=== PATIENT | male | born 1955 | race Caucasian/White ===

== ENCOUNTER 2018-01-01 06:25 | Day surgery (SDC) | payer BC, OTHER ==
[~2018-01-01 06:25] MED LIST: Midazolam 1 MG/ML 2 ML SDV ONE; Sodium Chloride 0.9% 10 ML Syringe FLUSH PRN; fentaNYL 100 MCG/2 ML SDV ONE
[2018-01-01] MEDS ORDERED: fentaNYL 100 MCG/2 ML SDV IV ONE (06:26)
[2018-01-01] MEDS ORDERED: Midazolam 1 MG/ML 2 ML SDV IV ONE (06:26)
[2018-01-01] MEDS: Dextrose 5%-0.45% NaCl 1,000 ML IV SCH (06:59)
[2018-01-01] MEDS: fentaNYL 100 MCG/2 ML SDV IV ONE ×2 (07:21→07:22)
[2018-01-01] MEDS: Midazolam 1 MG/ML 2 ML SDV IV ONE ×6 (07:22→07:29)
--- NOTE | 2018-01-01 08:15 | OR ---
DATE: 01/01/2018 PROCEDURE PERFORMED: Total colonoscopy, NBI, and cold snare polypectomy. INSTRUMENT USED: CF-H180 AL Olympus video colonoscope. PREMEDICATIONS: Fentanyl 100 mcg intravenous, Versed 4 mg intravenous. Nasal O2 cannula. The procedure was done under pulse oximetry, BP recording, and cardiac cath lab radiology technologist. INDICATION: The patient with previous colonic tubular adenoma. Surveillance colonoscopic examination is done for detection of any polypoid lesions and removal, endoscopic hemostasis therapy if needed. Initial rectal exam showed BPH. Rigid anoscopy showed small internal hemorrhoids without bleeding from them. DESCRIPTION OF PROCEDURE: The colonoscope was passed with ease. Scattered diverticula were noted, more so in the distal left colon. The scope was passed with ease at the ileocecal area. Photographs were taken of the cecum, identified by landmarks of appendiceal orifice and double-bulged ileocecal folds, 5 mm sized benign-appearing polyp was noted in the cecum. NBI views were obtained. Photographs were taken. Cold snare polypectomy was done, and the tissue was retrieved and sent for histopathology. No bleeding was noted from any of the visualized areas at the commencement of the examination. The bowel preparation was found to be adequate. No stricture. No vascular ectasia. No large or isolated ulceration seen. No evidence of diffuse inflammatory bowel disease in the form of friability, contact bleeding, or ulcerations. Probing the proximal sides of folds and flexures, using adequate distention and clearing up the stool material, withdrawal of the scope was made, cecum to rectum time over 6 minutes. No bleeding was noted from any of the visualized areas at the completion of the examination. IMPRESSION: 1. External hemorrhoids. 2. Diverticulosis. 3. Cecal polyp. The patient tolerated the procedure well. [facility] /[id number]
[2018-01-01 10:58] VITALS: BP 133/73
== END 2018-01-01 09:50 | disposition home or self-care (01) ==
LOC: DL.ENDO 06:25
PROVIDERS: ATTEND Internal Medicine Gastroenterology
DX: Z12.11 Encounter for screening for malignant neoplasm of colon (principal); K63.5 Polyp of colon; K64.8 Other hemorrhoids; K64.4 Residual hemorrhoidal skin tags; K57.30 Diverticulosis of large intestine without perforation or abscess without bleeding; I10 Essential (primary) hypertension; N40.0 Benign prostatic hyperplasia without lower urinary tract symptoms; F32.9 Major depressive disorder, single episode, unspecified; E78.5 Hyperlipidemia, unspecified; Z86.010 Personal history of colon polyps; Z80.0 Family history of malignant neoplasm of digestive organs
CPT/HCPCS: J2250; J3010; J7042

== ENCOUNTER 2019-09-07 16:42 | Emergency (ER) | payer OTHER ==
--- NOTE | 2019-09-07 17:13 | EDM.PDOC ---
ED HPI GENERAL MEDICAL PROBLEM - General Chief Complaint: Genitourinary Problem Stated Complaint: difficulty urinating Time Seen by Provider: 09/07/19 17:10 Source of Information: Reports: Patient, Old Records, RN, RN Notes Reviewed History Limitations: Reports: No Limitations - History of Present Illness INITIAL COMMENTS - FREE TEXT/NARRATIVE: Pt presents to ER from home by POV with c/o difficulty passing his urine. The happened once a few years ago and he had to have a catheter. Pt was seen in clinic yesterday and treated for a UTI with Macrobid. Denies hematuria, flank pain, N/V. Onset: Gradual Duration: Constant, Getting Worse Location: Reports: Other (Urinary) Quality: Reports: Pressure Severity: Moderate Improves with: Reports: None Worsens with: Reports: None Associated Symptoms: Reports: No Other Symptoms - Related Data Allergies Allergy/AdvReac Type Severity Reaction Status Date / Time lactose Allergy Diarrhea Verified 09/07/19 17:10 Home Meds: Home Meds Sertraline [Zoloft] 150 mg PO DAILY 12/31/17 [History] atorvaSTATin [Lipitor] 20 mg PO DAILY 12/31/17 [History] hydroCHLOROthiazide [Hydrochlorothiazide] 25 mg PO DAILY 12/31/17 [History] Tamsulosin HCl 0.4 mg PO DAILY 09/07/19 [History] nitrofurantoin macrocrystaL [Nitrofurantoin] 100 mg PO BID 09/07/19 [History] Past Medical History HEENT History: Reports: Impaired Vision Other HEENT History: CORRECTIVE LENS Cardiovascular History: Reports: High Cholesterol, Hypertension Respiratory History: Reports: None Gastrointestinal History: Reports: Colon Polyp, Diverticulosis, Hemorrhoids Genitourinary History: Reports: Prostate Disorder, Retention, Urinary Musculoskeletal History: Reports: None Neurological History: Reports: Migraines Psychiatric History: Reports: Depression Endocrine/Metabolic History: Reports: None Hematologic History: Reports: None Immunologic History: Reports: None Oncologic (Cancer) History: Reports: None Dermatologic History: Reports: None - Infectious Disease History Infectious Disease History: Reports: Chicken Pox, Influenza, Measles - Past Surgical History Head Surgeries/Procedures: Reports: None HEENT Surgical History: Reports: None Cardiovascular Surgical History: Reports: None Respiratory Surgical History: Reports: None GI Surgical History: Reports: Colonoscopy, Hernia, Inguinal, Polypectomy Other GI Surgeries/Procedures: Repair of right inguinal hernia Male Surgical History: Reports: None, Vasectomy Endocrine Surgical History: Reports: None Neurological Surgical History: Reports: None Other Neurological Surgeries/Procedures: last migraine 12/29/17 Musculoskeletal Surgical History: Reports: None Oncologic Surgical History: Reports: None Dermatological Surgical History: Reports: None Social & Family History - Family History Family Medical History: Noncontributory - Caffeine Use Caffeine Use: Reports: Coffee, Soda, Tea Other Caffeine Use: COFFEE AVERAGES 2 CUPS DAILY. SODA POP AVERAGES 1 DAILY 4- 5 WEEKLY ED ROS GENERAL - Review of Systems Review Of Systems: Comprehensive ROS is negative, except as noted in HPI. ED EXAM, RENAL/ - Physical Exam Exam: See Below Exam Limited By: No Limitations General Appearance: Alert, WD/WN, No Apparent Distress Throat/Mouth: Normal Voice, No Airway Compromise Head: Atraumatic, Normocephalic Respiratory/Chest: No Respiratory Distress Cardiovascular: Regular Rate, Rhythm GI/Abdominal: Normal Bowel Sounds, Soft, No Abnormal Bruit, Pelvis Stable, Tender (Suprapubic tenderness with mass consitent with enlarged urinary bladder to palpation.). No: Guarding, Rigid Rectal (Males) Exam: Deferred Back Exam: Normal Inspection. No: CVA Tenderness (L), CVA Tenderness (R) Extremities: Normal Inspection Neurological: Alert, Oriented, Normal Gait, No Motor/Sensory Deficits Psychiatric: Normal Mood Skin Exam: Warm, Dry Course - Vital Signs Last Recorded V/S: Last Vital Signs Temp 98.5 F 09/07/19 17:18 Pulse 94 09/07/19 17:18 Resp 16 09/07/19 17:18 BP 154/78 H 09/07/19 17:18 Pulse Ox 98 09/07/19 17:18 - Orders/Labs/Meds Orders: Active Orders 24 hr Category Date Time Status Insert Ignacio Catheter [Insert Urinary Catheter] [OM.PC] Care 09/07/19 17:38 Ordered Stat Urinary Catheter Assessment [RC] ASDIRECTED Care 09/07/19 17:39 Active CULTURE URINE [RM] Stat Lab 09/07/19 17:24 Received Labs: Laboratory Tests 09/07/19 Range/Units 17:24 Urine Color Yellow (YELLOW) Urine Appearance Slightly cloudy (CLEAR) Urine pH 7.0 (5.0-9.0) Ur Specific [place] 1.015 (1.005-1.030) Urine Protein Negative (NEGATIVE) Urine Glucose (UA) Negative (NEGATIVE) Urine Ketones Negative (NEGATIVE) Urine Occult Blood Trace-lysed H (NEGATIVE) Urine Nitrite Negative (NEGATIVE) Urine Bilirubin Negative (NEGATIVE) Urine Urobilinogen 0.2 (0.2-1.0) mg/dL Ur Leukocyte Esterase Small H (NEGATIVE) Urine RBC 5-10 H /HPF Urine WBC 30-40 H (0-5/HPF) /HPF Ur Epithelial Cells Rare (NOT SEEN) /HPF Amorphous Sediment Rare (NOT SEEN) /HPF Urine Bacteria Rare (0-FEW/HPF) /HPF Urine Mucus Rare (NOT SEEN) /LPF Meds: Medications Discontinued Medications Generic Name Dose Route Start Last Admin Trade Name Freq PRN Reason Stop Dose Admin Lidocaine HCl Confirm 09/07/19 17:43 Xylocaine 2% Jelly Administered 09/07/19 17:44 Dose 10 ml .ROUTE .STK-MED ONE - Re-Assessments/Exams Free Text/Narrative Re-Assessment/Exam: 09/07/19 18:13 Ignacio catheter placed by RN. Departure - Departure Time of Disposition: 18:13 Disposition: Home, Self-Care 01 Condition: Good Clinical Impression: Acute urinary retention - Discharge Information *PRESCRIPTION DRUG MONITORING PROGRAM REVIEWED*: Not Applicable *COPY OF PRESCRIPTION DRUG MONITORING REPORT IN PATIENT ART: Not Applicable Instructions: Indwelling Urinary Catheter Care, Adult, Acute Urinary Retention , Male Forms: ED Department Discharge Additional Instructions: Ignacio catheter self care as instructed by the nurse. Call Dr. Mcdaniels at [facility] tomorrow morning (09/07/19) to schedule follow up care. Inform Dr. Mcdaniels of the urinary retention, and that you have a catheter. Return to the ER if you develop a fever, pain, or any other concerning symptoms. Sepsis Event Note - Focused Exam Vital Signs: Vital Signs Temp Pulse Resp BP Pulse Ox 09/07/19 17:18 98.5 F 94 16 154/78 H 98 Date Exam was Performed: 09/07/19 Time Exam was Performed: 18:13 - My Orders Last 24 Hours: My Active Orders 09/07/19 17:24 CULTURE URINE [RM] Stat 09/07/19 17:38 Insert Ignacio Catheter [Insert Urinary Catheter] [OM.PC] Stat 09/07/19 17:39 Urinary Catheter Assessment [RC] ASDIRECTED - Assessment/Plan Last 24 Hours: My Active Orders 09/07/19 17:24 CULTURE URINE [RM] Stat 09/07/19 17:38 Insert Ignacio Catheter [Insert Urinary Catheter] [OM.PC] Stat 09/07/19 17:39 Urinary Catheter Assessment [RC] ASDIRECTED
[2019-09-07 17:22] VITALS: BP 154/78; PULSE 94
[2019-09-07] MEDS ORDERED: Lidocaine 2% Jelly 10 ML Urojet ONE (17:43)
[2019-10-02] MEDS ORDERED: Lidocaine 2% Jelly 10 ML Urojet MUCMEM ONE (09:05)
== END 2019-09-07 18:38 | disposition home or self-care (01) ==
LOC: DL.ED 16:42
DX: R33.9 Retention of urine, unspecified (principal); N39.0 Urinary tract infection, site not specified; I10 Essential (primary) hypertension; E78.00 Pure hypercholesterolemia, unspecified; F32.9 Major depressive disorder, single episode, unspecified; Z79.899 Other long term (current) drug therapy; Z91.011 Allergy to milk products
CPT/HCPCS: 51702; 81001; 87086; 99283

== ENCOUNTER 2023-03-08 05:57 | Day surgery (SDC) | payer MEDICARE, OTHER ==
[~2023-03-08 05:57] MED LIST changes: +Dextrose 5%-0.45% NaCl 1,000 ML IV SCH; -Midazolam 1 MG/ML 2 ML SDV ONE; -Sodium Chloride 0.9% 10 ML Syringe FLUSH PRN; -fentaNYL 100 MCG/2 ML SDV ONE
[2023-03-08] MEDS ORDERED: fentaNYL 100 MCG/2 ML SDV ONE (06:38)
[2023-03-08] MEDS ORDERED: Midazolam 1 MG/ML 2 ML SDV ONE (06:38)
[2023-03-08] MEDS ORDERED: fentaNYL 100 MCG/2 ML SDV IV ONE ×3 (06:58→07:09)
[2023-03-08] MEDS ORDERED: Midazolam 1 MG/ML 2 ML SDV IV ONE ×6 (06:59→07:05)
[2023-03-08 08:13] VITALS: BP 152/86; PULSE 79
== END 2023-03-08 08:36 | disposition home or self-care (01) ==
LOC: DL.ENDO 05:57
PROVIDERS: ATTEND Internal Medicine Gastroenterology
DX: Z12.11 Encounter for screening for malignant neoplasm of colon (principal); K57.30 Diverticulosis of large intestine without perforation or abscess without bleeding; I10 Essential (primary) hypertension; Z86.010 Personal history of colon polyps; Z88.1 Allergy status to other antibiotic agents
CPT/HCPCS: 45378; J2250; J3010; J7042